=== PATIENT | female | born 1975 | race Caucasian/White ===

== ENCOUNTER → 2019-10-13 | Outpatient (CLI) | payer OTHER ==
--- NOTE | 2019-10-24 17:42 | RAD ---
DATE: 10/13/2019 11:35 AM EXAM: DIGITAL SCREEN BILAT W/CAD HISTORY: Screening COMPARISON: 09/25/2015 Bilateral full field craniocaudal and mediolateral oblique images were obtained using digital technique. This study was interpreted with the benefit of Computerized Aided Detection (CAD). FINDINGS: Breast Density: FATTY The Breast Parenchyma is primarily fatty replaced. Breast parenchyma level density A. Stable benign posttreatment change in the inferior right breast. No suspicious masses, microcalcifications or architectural distortion is present to suggest malignancy in either breast. The visualized axillae are unremarkable. IMPRESSION: No mammographic evidence of malignancy. BI-RADS CATEGORY: 2 BENIGN FINDING(S) RECOMMENDED FOLLOW-UP: 12M 12 MONTH FOLLOW-UP Annual screening mammography is recommended, unless clinically indicated sooner based on symptoms or change in physical exam. PQRS compliance statement: Patient information was entered into a reminder system with a target due date for the next mammogram. Mammography is a sensitive method for finding small breast cancers, but it does not detect them all and is not a substitute for careful clinical examination. A negative mammogram does not negate a clinically suspicious finding and should not result in delay in biopsying a clinically suspicious abnormality. "Our facility is accredited by the [employer] Mammography Program."
== END | disposition home or self-care (01) ==
LOC: MAMMO 11:18
PROVIDERS: ATTEND Nurse Practitioner Family
DX: Z12.31 Encounter for screening mammogram for malignant neoplasm of breast (principal)
CPT/HCPCS: 77067

== ENCOUNTER 2020-02-01 21:07 | Emergency (ER) | payer OTHER ==
[~2020-02-01] VITALS: Ht 167.6 cm; Wt 123.0 kg
[2020-02-01] MEDS ORDERED: IV NORMAL SALINE 1,000ML 1,000 ML IV ONE (21:45)
[2020-02-01] MEDS ORDERED: IOHEXOL 300 MG/ML 75 ML VIAL. IV ONE (21:45)
[2020-02-01 21:49] LABS: BASO # 0.1 x10^3/uL (0.0-0.2); BASO % 1 % (0-3); EOS # 0.2 x10^3/uL (0.0-0.7); EOS % 1 % (0-3); HEMATOCRIT 42.3 % (36.0-47.0); HEMOGLOBIN 13.3 g/dL (12.0-15.5); LYMPH # 3.4 x10^3/uL (1.0-4.8); LYMPH % 27 % (24-48); MEAN CORPUSCULAR HEMOGLOBIN 25 pg (25-35); MEAN CORPUSCULAR HGB CONC 32 g/dL (31-37); MEAN CORPUSCULAR VOLUME 79 fL (79-100); MONO # 0.7 x10^3/uL (0.0-1.1); MONO % 6 % (0-9); NEUT # 8.1 x10^3uL (1.8-7.7); NEUT % 65 % (31-73); PLATELET COUNT 283 x10^3/uL (140-400); RED BLOOD COUNT 5.34 x10^6/uL (3.50-5.40); RED CELL DISTRIBUTION WIDTH 16.9 % (11.5-14.5); WHITE BLOOD COUNT 12.5 x10^3/uL (4.0-11.0)
[2020-02-01 21:57] LABS: CALCIUM 9.5 mg/dL (8.5-10.1); CREATININE 0.9 mg/dL (0.6-1.0); GFR 67.7; POTASSIUM 4.2 mmol/L (3.5-5.1)
[2020-02-01 21:59] LABS: BACTERIA,URINE 0 /HPF (0-FEW); BILIRUBIN,URINE NEG (NEG); CLARITY,URINE CLEAR; COLOR,URINE YELLOW; GLUCOSE,URINE >=1000 mg/dL (NEG); NITRITE,URINE NEG (NEG); RBC,URINE RARE /HPF (0-2); SQUAMOUS EPITHELIAL CELL,UR FEW /LPF; UROBILINOGEN,URINE 0.2 mg/dL (0.2 mg/dL); WBC,URINE RARE /HPF (0-4)
[2020-02-01 22:03] LABS: ALBUMIN 3.6 g/dL (3.4-5.0); ALBUMIN/GLOBULIN RATIO 0.9 (1.0-1.7); TOTAL BILIRUBIN 0.2 mg/dL (0.2-1.0); TOTAL PROTEIN 7.4 g/dL (6.4-8.2)
--- NOTE | 2020-02-01 23:06 | RAD ---
Exam: CT of abdomen and pelvis with contrast INDICATION: Right lower quadrant pain, history of cholecystectomy and TECHNIQUE: Sequential axial images through the abdomen and pelvis obtained following the administration of 75 mL of Omni 300 IV contrast. Sagittal and coronal reformatted images were reconstructed from the axial data and reviewed. Comparisons: None FINDINGS: Heart size is normal. No pericardial effusion. Is lung bases are clear. No Liver, spleen, pancreas and adrenals are unremarkable. Gallbladder surgically absent. No perinephric inflammation or hydronephrosis. No renal or ureteral calculi are identified. Bladder is distended and appears thin-walled. Uterus is nonenlarged. No abnormal adnexal mass. Large and small bowel are unremarkable. Appendix is normal. No free intra-abdominal air or fluid. No obstruction. Abdominal aorta has a normal course and caliber. Abdominal vasculature is patent. No enlarged abdominal lymph nodes are identified. No suspicious osseous lesions or acute fractures. IMPRESSION: No acute process identified within the abdomen or pelvis. Exposure: One or more of the following in the visualized dose reduction techniques were utilized for this examination: 1. Automated exposure control 2. Adjustment of the MA and/or KV according to patient size 3. Use of iterative of reconstructive technique Electronically signed by: Alexa Amezcua MD (02/01/2020 11:03 PM) [facility]
--- NOTE | 2020-02-01 23:19 | PHYS DOC ---
Past History Past Medical History: Anemia, Diabetes, Other Additional Past Medical Histor: liver scaring Past Surgical History: Cholecystectomy, Additional Past Surgical Histo: Right partial masectomy Alcohol Use: None General Adult EDM: Chief Complaint: ABDOMINAL PAIN HPI: HPI: 44-year-old female presents with right lower quadrant abdominal pain. She has been having gastrointestinal issues for a few weeks and has an appointment with a GI specialist coming up. She presents today because he has had right lower quadrant pain that is new. This is gone on update today. She denies any falls or trauma. She wants to make sure there is nothing acute going on but cannot wait for her specialist appointment. She denies fever or chills. She has diarrhea at baseline. She has not had any vomiting. The pain is a mild to moderate cramping sensation. Review of Systems: Review of Systems: Constitutional: Denies fever or chills Eyes: Denies change in visual acuity HENT: Denies nasal congestion or sore throat Respiratory: Denies cough or shortness of breath Cardiovascular: Denies chest pain or edema GI: Right lower quadrant abdominal pain. Denies nausea, vomiting, bloody stools or diarrhea : Denies dysuria Musculoskeletal: Denies back pain or joint pain Integument: Denies rash Neurologic: Denies headache, focal weakness or sensory changes Endocrine: Denies polyuria or polydipsia Lymphatic: Denies swollen glands Psychiatric: Denies depression or anxiety Current Medications: Current Meds: Current Medications Medications (Trade) Dose Ordered Sig/Noemi Start Time Stop Time Status Last Admin Dose Admin Iohexol (Omnipaque 300 Mg/ml) 75 ml 1X ONCE 02/01/20 21:45 02/01/20 22:16 DC 02/01/20 22:39 75 ML Sodium Chloride 1,000 ml @ 1,000 mls/hr 1X ONCE 02/01/20 21:45 02/01/20 22:44 DC 02/01/20 22:26 1,000 MLS/HR Allergies: Allergies: Allergies Coded Allergies Type Severity Reaction Last Updated Verified dicloxacillin Allergy Unknown 02/01/20 Yes Physical Exam: PE: Constitutional: Well developed, well nourished, morbidly obese, no acute dist ress, non-toxic appearance. [] HENT: Normocephalic, atraumatic, bilateral external ears normal, oropharynx moist, no oral exudates, nose normal. [] Eyes: PERRLA, EOMI, conjunctiva normal, no discharge. [] Neck: Normal range of motion, no tenderness, supple, no stridor. [] Cardiovascular: Heart rate regular rhythm, no murmur [] Lungs & Thorax: Bilateral breath sounds clear to auscultation [] Abdomen: Bowel sounds normal, soft, mild right lower quadrant tenderness, no masses, no pulsatile masses. [] Skin: Warm, dry, no erythema, no rash. [] Back: No tenderness, no CVA tenderness. [] Extremities: No tenderness, no cyanosis, no clubbing, ROM intact, no edema. [] Neurologic: Alert and oriented X 3, normal motor function, normal sensory function, no focal deficits noted. [] Psychologic: Affect normal, judgement normal, mood normal. [] Current Patient Data: Labs: Laboratory Tests Test 02/01/20 21:25 02/01/20 21:30 02/01/20 21:38 Urine Collection Type Unknown Urine Color Yellow Urine Clarity Clear Urine pH 5.5 Urine Specific [place] 1.020 Urine Protein Neg (NEG-TRACE) Urine Glucose (UA) >=1000 mg/dL (NEG) Urine Ketones (Stick) Neg mg/dL (NEG) Urine Blood Neg (NEG) Urine Nitrite Neg (NEG) Urine Bilirubin Neg (NEG) Urine Urobilinogen Dipstick 0.2 mg/dL (0.2 mg/dL) Urine Leukocyte Esterase Neg (NEG) Urine RBC Rare /HPF (0-2) Urine WBC Rare /HPF (0-4) Urine Squamous Epithelial Cells Few /LPF Urine Bacteria 0 /HPF (0-FEW) Sodium Level 136 mmol/L (136-145) Potassium Level 4.2 mmol/L (3.5-5.1) Chloride Level 100 mmol/L (98-107) Carbon Dioxide Level 24 mmol/L (21-32) Anion Gap 12 (6-14) Blood Urea Nitrogen 8 mg/dL (7-20) Creatinine 0.9 mg/dL (0.6-1.0) Estimated GFR (Cockcroft-Gault) 67.7 BUN/Creatinine Ratio 9 (6-20) Glucose Level 241 mg/dL (70-99) H Calcium Level 9.5 mg/dL (8.5-10.1) Total Bilirubin 0.2 mg/dL (0.2-1.0) Aspartate Amino Transferase (AST) 14 U/L (15-37) L Alanine Aminotransferase (ALT) 22 U/L (14-59) Alkaline Phosphatase 98 U/L (46-116) Total Protein 7.4 g/dL (6.4-8.2) Albumin 3.6 g/dL (3.4-5.0) Albumin/Globulin Ratio 0.9 (1.0-1.7) L White Blood Count 12.5 x10^3/uL (4.0-11.0) H Red Blood Count 5.34 x10^6/uL (3.50-5.40) Hemoglobin 13.3 g/dL (12.0-15.5) Hematocrit 42.3 % (36.0-47.0) Mean Corpuscular Volume 79 fL (79-100) Mean Corpuscular Hemoglobin 25 pg (25-35) Mean Corpuscular Hemoglobin Concent 32 g/dL (31-37) Red Cell Distribution Width 16.9 % (11.5-14.5) H Platelet Count 283 x10^3/uL (140-400) Neutrophils (%) (Auto) 65 % (31-73) Lymphocytes (%) (Auto) 27 % (24-48) Monocytes (%) (Auto) 6 % (0-9) Eosinophils (%) (Auto) 1 % (0-3) Basophils (%) (Auto) 1 % (0-3) Neutrophils # (Auto) 8.1 x10^3uL (1.8-7.7) H Lymphocytes # (Auto) 3.4 x10^3/uL (1.0-4.8) Monocytes # (Auto) 0.7 x10^3/uL (0.0-1.1) Eosinophils # (Auto) 0.2 x10^3/uL (0.0-0.7) Basophils # (Auto) 0.1 x10^3/uL (0.0-0.2) POC Urine HCG, Qualitative hcg negative (Negative) Vital Signs: Vital Signs Date Time Temp Pulse Resp B/P (MAP) Pulse Ox O2 Delivery O2 Flow Rate FiO2 02/01/20 21:07 98.6 88 18 148/78 (101) 97 Room Air EKG: EKG: [] Radiology/Procedures: Radiology/Procedures: [] Impressions: Exam: CT of abdomen and pelvis with contrast INDICATION: Right lower quadrant pain, history of cholecystectomy and TECHNIQUE: Sequential axial images through the abdomen and pelvis obtained following the administration of 75 mL of Omni 300 IV contrast. Sagittal and coronal reformatted images were reconstructed from the axial data and reviewed. Comparisons: None FINDINGS: Heart size is normal. No pericardial effusion. Is lung bases are clear. No Liver, spleen, pancreas and adrenals are unremarkable. Gallbladder surgically absent. No perinephric inflammation or hydronephrosis. No renal or ureteral calculi are identified. Bladder is distended and appears thin-walled. Uterus is nonenlarged. No abnormal adnexal mass. Large and small bowel are unremarkable. Appendix is normal. No free intra-abdominal air or fluid. No obstruction. Abdominal aorta has a normal course and caliber. Abdominal vasculature is patent. No enlarged abdominal lymph nodes are identified. No suspicious osseous lesions or acute fractures. IMPRESSION: No acute process identified within the abdomen or pelvis. Exposure: One or more of the following in the visualized dose reduction techniques were utilized for this examination: 1. Automated exposure control 2. Adjustment of the MA and/or KV according to patient size 3. Use of iterative of reconstructive technique Electronically signed by: Alexa Burnham MD (02/01/2020 11:03 PM) [facility] DICTATED AND SIGNED BY: ALEXA BURNHAM MD DATE: 02/01/20 [id number] CC: CORY ONEILL; JIGNESH TOURE DO ~ Heart Score: Risk Factors: Risk Factors: DM, Current or recent (<one month) smoker, HTN, HLP, family history of CAD, obesity. Risk Scores: Score 0 - 3: 2.5% MACE over next 6 weeks - Discharge Home Score 4 - 6: 20.3% MACE over next 6 weeks - Admit for Clinical Observation Score 7 - 10: 72.7% MACE over next 6 weeks - Early Invasive Strategies Course & Med Decision Making: Course & Med Decision Making Pertinent Labs and Imaging studies reviewed. (See chart for details) The patient's labs are significant for an elevated glucose. Urinalysis is negative for infection. The CT scan is negative for acute findings. This could be menstrual cramps. It could be related to the sequela of her chronic diarrhea that she is already struggling with. I do not see any life-threatening complications at this time. She is stable for discharge. [] Mark Disclaimer: Mark Disclaimer: This electronic medical record was generated, in whole or in part, using a voice recognition dictation system. Departure Departure: Impression: Primary Impression: Right lower quadrant abdominal pain Disposition: 01 DC HOME SELF CARE/HOMELESS Condition: STABLE Referrals: CORY ONEILL (PCP) Patient Instructions: Abdominal Pain, Women JIGNESH TOURE DO Feb 01, 2020 23:19
[2020-02-01 23:45] VITALS: BP 135/64
== END 2020-02-01 23:45 | disposition home or self-care (01) ==
LOC: ER 21:07
DX: R10.31 Right lower quadrant pain (principal); E11.9 Type 2 diabetes mellitus without complications; Z86.2 Personal history of diseases of the blood and blood-forming organs and certain disorders involving the immune mechanism; Z90.49 Acquired absence of other specified parts of digestive tract; Z98.890 Other specified postprocedural states; Z88.1 Allergy status to other antibiotic agents
CPT/HCPCS: 36415; 74177; 80053; 81001; 81025; 85025; 96360; 99285; J7030; Q9967

== ENCOUNTER → 2020-02-20 | Outpatient (CLI) | payer OTHER ==
[2020-02-01 23:45] VITALS: BP 135/64
--- NOTE | 2020-02-20 09:04 | RAD ---
STUDY: US Abdomen Complete INDICATION: Diarrhea. Diabetes mellitus. Generalized abdominal pain. COMPARISON: 02/01/2020 CT abdomen/pelvis. TECHNIQUE: Real-time grayscale and color Doppler sonographic evaluation of the abdomen. Findings: Pancreas: What is visualized of the pancreas is within normal limits. Liver: Normal size and echogenicity. Aorta/IVC/Main Portal Vein: Patent main portal vein with hepatopedal flow. Nonaneurysmal aorta. Unremarkable IVC at the liver. Gall Bladder: Surgically absent. Common Bile Duct: Normal transverse dimension at 0.4 cm. Right Kidney: Within normal limits for size at 12.2 cm in length. Cortical thickness and echogenicity is unremarkable. No hydronephrosis. No complex cyst or mass. Left Kidney: Within normal limits for size at 12.8 cm in length. Cortical thickness and echogenicity is unremarkable. No hydronephrosis. No complex cyst or mass. Spleen: Within normal limits for size at 11 cm in length. Miscellaneous: None. Impression: 1. Unremarkable ultrasound examination of the abdomen. 2. Surgically absent gallbladder. Electronically signed by: LUNA BORGES MD (02/20/2020 9:01 AM) [id number]
== END ==
LOC: US 07:51
PROVIDERS: ATTEND Nurse Practitioner Family
DX: E11.9 Type 2 diabetes mellitus without complications (principal); Z90.49 Acquired absence of other specified parts of digestive tract
CPT/HCPCS: 76700

== ENCOUNTER 2020-07-22 15:11 | Emergency (ER) | payer OTHER ==
[~2020-07-22] VITALS: Ht 167.6 cm; Wt 125.7 kg
[2020-07-22 15:55] LABS: BILIRUBIN,URINE NEG (NEG); CLARITY,URINE CLEAR; COLOR,URINE YELLOW; GLUCOSE,URINE >=1000 mg/dL (NEG); NITRITE,URINE NEG (NEG); UROBILINOGEN,URINE 0.2 mg/dL (0.2 mg/dL)
[2020-07-22 15:58] LABS: BACTERIA,URINE 0 /HPF (0-FEW); SQUAMOUS EPITHELIAL CELL,UR FEW /LPF; WBC,URINE 0 /HPF (0-4)
--- NOTE | 2020-07-22 16:03 | PHYS DOC ---
Past History Past Medical History: Anemia, Diabetes, Other Additional Past Medical Histor: liver scaring (JEFFREY GIBSON APRN) Past Surgical History: Cholecystectomy, Additional Past Surgical Histo: Right partial masectomy (JEFFREY GIBSON APRN) Alcohol Use: None (JEFFREY GIBSON APRN) Adult General Chief Complaint Chief Complaint: FLANK PAIN HPI HPI Patient is a 45-year-old transgender female, states I have changed from female to male, I take testosterone now, my name is Rangel. Complains of a sudden onset of right sided back pain has started last , stating Thursday and Thursday has been a constant ache. Has been treating the pain with a heating pad without a successful reduction in pain. Patient states he noticed blood in the urine today, called nurse advice line who told him to come to the emergency department and be checked out for a kidney stone. Patient denies any other physical complaints or physical concerns. (JEFFREY GIBSON APRN) Review of Systems Review of Systems 14 body systems of review of systems have been reviewed. See HPI for pertinent positives and negative responses, otherwise all other systems are negative, nonpertinent or noncontributory. (JEFFREY GIBSON APRN) Allergies Allergies Allergies Coded Allergies Type Severity Reaction Last Updated Verified dicloxacillin Allergy Unknown 02/01/20 Yes (JEFFREY GIBSON APRN) Physical Exam Physical Exam Constitutional: Well developed, well nourished, no acute distress, non-toxic appearance. HENT: Normocephalic, atraumatic, bilateral external ears normal, oropharynx moist, no oral exudates, nose normal. Eyes: PERRLA, EOMI, conjunctiva normal, no discharge. Neck: Normal range of motion, no tenderness, supple, no stridor. Cardiovascular:Heart rate regular rhythm, no murmur Lungs & Thorax: Bilateral breath sounds clear to auscultation Abdomen: Bowel sounds normal, soft, no tenderness, no masses, no pulsatile masses. No rebound tenderness, no Cooper sign, no McBurney's point tenderness, well-healed surgical scars, patient has history of gallbladder in 1996. Skin: Warm, dry, no erythema, no rash. Back: No midline vertebral spinal pain, no left-sided CVA tenderness, positive right-sided CVA tenderness. No bruising or areas of ecchymosis to the back. Extremities: No tenderness, no cyanosis, no clubbing, ROM intact, no edema. Neurologic: Alert and oriented X 3, normal motor function, normal sensory function, no focal deficits noted. Psychologic: Affect normal, judgement normal, mood normal. (JEFFREY GIBSON APRN) Current Patient Data Lab Results Laboratory Tests Test 07/22/20 15:27 07/22/20 16:35 Urine Collection Type Unknown Urine Color Yellow Urine Clarity Clear Urine pH 5.5 Urine Specific Spencer 1.010 Urine Protein Neg Urine Glucose (UA) >=1000 mg/dL Urine Ketones (Stick) Neg mg/dL Urine Blood Trace Urine Nitrite Neg Urine Bilirubin Neg Urine Urobilinogen Dipstick 0.2 mg/dL Urine Leukocyte Esterase Neg Urine RBC 6-10 /HPF Urine WBC 0 /HPF Urine Squamous Epithelial Cells Few /LPF Urine Bacteria 0 /HPF White Blood Count 10.8 x10^3/uL Red Blood Count 6.45 x10^6/uL Hemoglobin 17.6 g/dL Hematocrit 53.6 % Mean Corpuscular Volume 83 fL Mean Corpuscular Hemoglobin 27 pg Mean Corpuscular Hemoglobin Concent 33 g/dL Red Cell Distribution Width 19.0 % Platelet Count 187 x10^3/uL Neutrophils (%) (Auto) 68 % Lymphocytes (%) (Auto) 24 % Monocytes (%) (Auto) 6 % Eosinophils (%) (Auto) 1 % Basophils (%) (Auto) 1 % Neutrophils # (Auto) 7.3 x10^3uL Lymphocytes # (Auto) 2.5 x10^3/uL Monocytes # (Auto) 0.7 x10^3/uL Eosinophils # (Auto) 0.1 x10^3/uL Basophils # (Auto) 0.1 x10^3/uL Sodium Level 137 mmol/L Potassium Level 4.4 mmol/L Chloride Level 101 mmol/L Carbon Dioxide Level 25 mmol/L Anion Gap 11 Blood Urea Nitrogen 13 mg/dL Creatinine 0.9 mg/dL Estimated GFR (Cockcroft-Gault) 67.4 BUN/Creatinine Ratio 14 Glucose Level 292 mg/dL Calcium Level 9.1 mg/dL Total Bilirubin 0.4 mg/dL Aspartate Amino Transf (AST/SGOT) 25 U/L Alanine Aminotransferase (ALT/SGPT) 26 U/L Alkaline Phosphatase 114 U/L Total Protein 7.6 g/dL Albumin 3.5 g/dL Albumin/Globulin Ratio 0.9 Lipase 87 U/L Current Medications Medications (Trade) Dose Ordered Sig/Noemi Route PRN Reason Start Time Stop Time Status Last Admin Dose Admin Ketorolac Tromethamine (Toradol 30mg Vial) 30 mg 1X ONCE IVP 07/22/20 16:15 07/22/20 16:18 DC 07/22/20 17:50 Sodium Chloride 1,000 ml @ 1,000 mls/hr 1X ONCE IV 07/22/20 16:15 07/22/20 17:14 DC 07/22/20 17:50 Laboratory Tests Test 07/22/20 15:27 Urine Collection Type Unknown Urine Color Yellow Urine Clarity Clear Urine pH 5.5 Urine Specific Spencer 1.010 Urine Protein Neg (NEG-TRACE) Urine Glucose (UA) >=1000 mg/dL (NEG) Urine Ketones (Stick) Neg mg/dL (NEG) Urine Blood Trace (NEG) Urine Nitrite Neg (NEG) Urine Bilirubin Neg (NEG) Urine Urobilinogen Dipstick 0.2 mg/dL (0.2 mg/dL) Urine Leukocyte Esterase Neg (NEG) Urine RBC 6-10 /HPF (0-2) Urine WBC 0 /HPF (0-4) Urine Squamous Epithelial Cells Few /LPF Urine Bacteria 0 /HPF (0-FEW) (JEFFREY GIBSON APRN) EKG EKG [] (JEFFREY GIBSON APRN) Radiology/Procedures Radiology/Procedures []PATIENT: EMILE RUFFIN LACCOUNT: [id number]#: [id number] : 1975 LOCATION: ER AGE: 45 SEX: F EXAM STATUS: REG ER ORD. PHYSICIAN: JEFFREY GIBSON APRN REASON: rt flank pain with hematuria PROCEDURE: CT ABDOMEN PELVIS WO CONTRAST EXAM: Abdomen and pelvis CT without intravenous contrast. HISTORY: Right flank pain and hematuria. TECHNIQUE: Computed tomographic images of the abdomen and pelvis were obtained without contrast. Multiplanar reformatting was performed. *One or more of the following individualized dose reduction techniques were utilized for this examination: 1. Automated exposure control. 2. Adjustment of the mA and/or kV according to patient size. 3. Use of iterative reconstruction technique. COMPARISON: None. FINDINGS: Evaluation of the lower thorax is unremarkable. No hepatic lesion is seen. The gallbladder is absent. The pancreas, spleen and adrenal glands are unremarkable. There is no evidence of nephroureterolithiasis or hydronephrosis. The bladder is unremarkable. The cecum is positioned within the mid abdomen. There is no appendicitis. There is no bowel obstruction. There is no abnormal bowel wall thickening. The uterus and ovaries are unremarkable. The aorta is normal in caliber. There is no lymphadenopathy. There is no acute or suspicious osseous finding. IMPRESSION: No acute abdominal or pelvic finding. Electronically signed by: Bhumika Garza MD (07/22/2020 5:26 PM) [facility] DICTATED AND SIGNED BY: BHUMIKA GARZA MD DATE: 07/22/201723 CC: JEFFREY GIBSON APRN; MANOHAR LEE MD ~MTH0 0 (JEFFREY GIBSON APRN) Heart Score C/O Chest Pain: No Risk Factors: Risk Factors: DM, Current or recent (<one month) smoker, HTN, HLP, family h istory of CAD, obesity. Risk Scores: Risk Factors: DM, Current or recent (<one month) smoker, HTN, HLP, family history of CAD, obesity. (JEFFREY GIBSON APRN) Course & Med Decision Making Course & Med Decision Making Pertinent Labs and Imaging studies reviewed. (See chart for details) 45-year-old female transgender to male, vital signs reviewed, reports sudden onset right-sided mid back pain that started last , noticed blood in urine, was told to come to ER to rule out kidney stone. Physical examination concerning for kidney stone to include right-sided CVA tenderness with hematuria. Will order IV saline lock, normal saline, 30 mg Toradol for pain, CT abdomen pelvis to rule out nephrolithiasis or other acute abdominal process. Upon reevaluation of the patient, patient denies any change of pain, will order 1 tablet of 5/325 hydrocodone/acetaminophen for left leg back pain. Patient's labs showed mild hemoconcentration, this is most likely related to sex change testosterone hormone injections. Discussed CT findings with patient, discussed pain most likely musculoskeletal back pain versus back strain. Will treat with 10 mg Flexeril and 600 mg ibuprofen prescriptions for home. Discussed with patient ice packs to sore areas for the next 48 hours 30 minutes on and 30 minutes off. Patient gave verbal understanding of discharge home instructions, follow-up with primary care on Thursday, prescription medication use for pain control, return to ER precautions or concerns, patient was thankful stating he is ready to go home and was discharged home without incident. (JEFFREY GIBSON APRN) Dragon Disclaimer Dragon Disclaimer This electronic medical record was generated, in whole or in part, using a voice recognition dictation system. (JEFFREY GIBSON APRN) Attending Co-Sign The patient was seen and interviewed as well as examined at the bedside. The chart was reviewed. The case was discussed. Agree with the plan of care. (JIGNESH TOURE DO) Departure Departure: Impression: Primary Impression: Strain of mid-back Disposition: 01 HOME / SELF CARE / HOMELESS Condition: GOOD Referrals: MANOHAR LEE MD (PCP) Additional Instructions: You have been seen today in the emergency department for back pain, a CT was performed to rule out a kidney stone or any other anterior abdominal or back/spine abnormalities, there were no concerning findings of the CT scan. As we discussed your pain is most likely related to a strain of your mid back. I am prescribing you 10 mg Flexeril to take up to 3 times a day as needed for back pain along with 600 mg ibuprofen to take up to 3 times a day for back pain as well. As we discussed I encourage you to follow-up with your primary care provider at on Thursday for ongoing evaluation of your back pain along with pain management. Please return to the emergency department for worsening sympt oms or other concerns. EMERGENCY DEPARTMENT GENERAL DISCHARGE INSTRUCTIONS Thank you for coming to [facility] (ED) today and trusting us with you care. We trust that you had a positivie experience in our Emergency Department. If you wish to speak to the department management, you may call the director at [phone]. YOUR FOLLOW UP INSTRUCTIONS ARE FOLLOWS: 1. Do you have a private Doctor? If you do not have a private doctor, please ask for a resource list of physicians or clinics that may be able to assist you with follow up care. 2. The Emergency Physician has interpreted your x-rays. The X-Ray specialist will also review them. If there is a change in the findings, you will be notified in 48 hours when at all possible. 3. A lab test or culture has been done, your results will be reviewed and you will be notified if you need a change in treatment. ADDITIONAL INSTRUCTIONS AND INFORMATION: 1. Your care today has been supervised by a physician who is specially trained in emergency care. Many problems require more than one evaluation for a complete diagnosis and treatment. We recommend that you schedule your follow up appointment as recommended to ensure complete treatment of you illness or injury. If you are unable to obtain follow up care and continue to have a problem, or if your condition worsens, we recommend that you return to the ED. 2. We are not able to safely determine your condition over the phone nor are we able to give sound medical advice over the phone. For these safety reasons, if you call for medical advice we will ask you to come to the ED for further evaluation. 3. If you have any questions regarding these discharge instructions please call the ED at [phone]. SAFETY INFORMATION: In the interest of safety, wellness, and injury prevention; we encourage you to wear your sealbelt, if you smoke; quite smoking, and we encourage family to use a protective helmet for bicycling and other sporting events that present an increased risk for head injury. IF YOUR SYMPTOMS WORSEN OR NEW SYMPTOMS DEVELOP, OR YOU HAVE CONCERNS ABOUT YOUR CONDITION; OR IF YOUR CONDITION WORSENS WHILE YOU ARE WAITING FOR YOUR FOLLOW UP APPOINTMENT; EITHER CONTACT YOUR PRIMARY CARE DOCTOR, THE PHYSICIAN WHOSE NAME AND NUMBER YOU WERE GIVEN, OR RETURN TO THE ED IMMEDIATELY. Scripts Ibuprofen (IBUPROFEN) 600 Mg Tablet 600 MG PO TID PRN PRN for PAIN, #20 TAB 0 Refills Prov: JEFFREY GIBSON APRN 07/22/20 Cyclobenzaprine Hcl (CYCLOBENZAPRINE HCL) 10 Mg Tablet 1 TAB PO TID PRN PRN for PAIN, #12 TAB 0 Refills Prov: JEFFREY GIBSON APRN 07/22/20 Problem Qualifiers Primary Impression: Strain of mid-back Encounter type: initial encounter Qualified Codes: S29.012A - Strain of muscle and tendon of back wall of thorax, initial encounter JEFFREY GIBSON APRN July 22, 2020 16:02 JIGNESH TOURE DO July 23, 2020 03:38
[2020-07-22] MEDS ORDERED: IV NORMAL SALINE 1,000ML 1,000 ML IV ONE (16:15)
[2020-07-22] MEDS ORDERED: KETOROLAC 30 MG/ML VIAL. IVP ONE (16:15)
[2020-07-22 17:08] LABS: BASO # 0.1 x10^3/uL (0.0-0.2); BASO % 1 % (0-3); EOS # 0.1 x10^3/uL (0.0-0.7); EOS % 1 % (0-3); HEMATOCRIT 53.6 % (36.0-47.0); HEMOGLOBIN 17.6 g/dL (12.0-15.5); LYMPH # 2.5 x10^3/uL (1.0-4.8); LYMPH % 24 % (24-48); MEAN CORPUSCULAR HEMOGLOBIN 27 pg (25-35); MEAN CORPUSCULAR HGB CONC 33 g/dL (31-37); MEAN CORPUSCULAR VOLUME 83 fL (79-100); MONO # 0.7 x10^3/uL (0.0-1.1); MONO % 6 % (0-9); NEUT # 7.3 x10^3uL (1.8-7.7); NEUT % 68 % (31-73); PLATELET COUNT 187 x10^3/uL (140-400); RED BLOOD COUNT 6.45 x10^6/uL (3.50-5.40); WHITE BLOOD COUNT 10.8 x10^3/uL (4.0-11.0)
[2020-07-22 17:17] LABS: CALCIUM 9.1 mg/dL (8.5-10.1); CREATININE 0.9 mg/dL (0.6-1.0); GFR 67.4; POTASSIUM 4.4 mmol/L (3.5-5.1)
[2020-07-22 17:23] LABS: ALBUMIN 3.5 g/dL (3.4-5.0); ALBUMIN/GLOBULIN RATIO 0.9 (1.0-1.7); TOTAL BILIRUBIN 0.4 mg/dL (0.2-1.0); TOTAL PROTEIN 7.6 g/dL (6.4-8.2)
--- NOTE | 2020-07-22 17:28 | RAD ---
EXAM: Abdomen and pelvis CT without intravenous contrast. HISTORY: Right flank pain and hematuria. TECHNIQUE: Computed tomographic images of the abdomen and pelvis were obtained without contrast. Mult iplanar reformatting was performed. *One or more of the following individualized dose reduction techniques were utilized for this examina tion: 1. Automated exposure control. 2. Adjustment of the mA and/or kV according to patient size. 3. Use of iterative reconstruction technique. COMPARISON: None. FINDINGS: Evaluation of the lower thorax is unremarkable. No hepatic lesion is seen. The gallbladder is absent. The pancreas, spleen and adrenal glands are unremarkable. There is no evidence of nephrour eterolithiasis or hydronephrosis. The bladder is unremarkable. The cecum is positioned within the mid abdomen. There is no appendicitis. There is no bowel obstructi on. There is no abnormal bowel wall thickening. The uterus and ovaries are unremarkable. The aorta is normal in caliber. There is no lymphadenopathy. There is no acute or suspicious osseous finding. IMPRESSION: No acute abdominal or pelvic finding. Electronically signed by: Bhumika Forrest MD (07/22/2020 5:26 PM) [facility]
[2020-07-22] MEDS ORDERED: CYCLOBENZAPRINE 10MG 4TABLET STARTPACK PO ONE (18:45)
[2020-07-22] MEDS ORDERED: HYDROcodone/APAP 5/325MG 1 TAB TABLET PO ONE (18:45)
[2020-07-22] MEDS ORDERED: CYCL-331 PO (18:57)
[2020-07-22] MEDS ORDERED: IBUP600T16 PO (18:57)
[2020-07-22 19:08] VITALS: BP 148/98
== END 2020-07-22 19:08 | disposition home or self-care (01) ==
LOC: ER 15:11
DX: S29.012A Strain of muscle and tendon of back wall of thorax, initial encounter (principal); E11.9 Type 2 diabetes mellitus without complications; Z86.2 Personal history of diseases of the blood and blood-forming organs and certain disorders involving the immune mechanism; Z90.49 Acquired absence of other specified parts of digestive tract; Z98.890 Other specified postprocedural states; Z88.1 Allergy status to other antibiotic agents; X58.XXXA Exposure to other specified factors, initial encounter; Y93.89 Activity, other specified; Y92.89 Other specified places as the place of occurrence of the external cause; Y99.8 Other external cause status
CPT/HCPCS: 36415; 74176; 80053; 81001; 83690; 85025; 96361; 96374; 99284; J1885; J7030

== ENCOUNTER 2021-05-28 01:38 | Emergency (ER) | payer OTHER ==
[~2021-05-28] VITALS: Ht 167.6 cm; Wt 114.9 kg
[~2021-05-28 01:38] MED LIST: CYCL10TA19 PO; IBUP600T16 PO
--- NOTE | 2021-05-28 01:45 | PHYS DOC ---
Past History Past Medical History: Anemia, Diabetes, Other Additional Past Medical Histor: liver scaring Past Surgical History: Cholecystectomy, Additional Past Surgical Histo: Right partial masectomy Alcohol Use: None Adult General HPI HPI Patient is a 45-year-old female who is transitioning to male, who goes by Rangel who presents with hyperglycemia. States that he has some slipped disks in his neck and early yesterday morning had a steroid injection. States he was told that this could raise his blood sugar. States that the day before he ate normally, drink normally, made urine and stool normally for him and had normal blood sugars. States his blood sugar did go up until after the injection. States he has been eating and drinking normally for him today. States he has been taking his insulin normally and eating. Has a recent travels, traumas, illnesses, fevers, neck pain, pain or trouble swallowing, chest pain, shortness of breath, abdominal pain, nausea, vomiting, diarrhea. States he otherwise feels well but came in because his blood sugar was high at home when checking. Review of Systems Review of Systems Review of systems otherwise unremarkable except noted in HPI Allergies Allergies Allergies Coded Allergies Type Severity Reaction Last Updated Verified dicloxacillin Allergy Unknown 02/01/20 Yes Physical Exam Physical Exam Constitutional: Well developed, well nourished, no acute distress, non-toxic appearance. [] HENT: Normocephalic, atraumatic, bilateral external ears normal, oropharynx moist, no oral exudates, nose normal. [] Eyes: conjunctiva normal, no discharge. [] Neck: Normal range of motion, no tenderness, supple, no stridor. [] Cardiovascular:Heart rate regular rhythm, no murmur [] Lungs & Thorax: Bilateral breath sounds clear to auscultation [] Abdomen: Bowel sounds normal, soft, no tenderness, no masses, no pulsatile masses. [] Skin: Warm, dry, no erythema, no rash. [] Back: No tenderness, no CVA tenderness. [] Extremities: No tenderness, no cyanosis, no clubbing, ROM intact, no edema. [] Neurologic: Alert and oriented X 3, normal motor function, normal sensory function, no focal deficits noted. [] Psychologic: Affect normal, judgement normal, mood normal. [] EKG EKG [] Radiology/Procedures Radiology/Procedures [] Heart Score C/O Chest Pain: No Risk Factors: Risk Factors: DM, Current or recent (<one month) smoker, HTN, HLP, family history of CAD, obesity. Risk Scores: Risk Factors: DM, Current or recent (<one month) smoker, HTN, HLP, family history of CAD, obesity. Course & Med Decision Making Course & Med Decision Making Patient 45-year-old female presents with hyperglycemia Initially notable for tachycardia and hypertension which tachycardia improved in the ED and blood pressure came down. Physical exam noted above. Placed on the monitor with IV access established and IV fluid begun. Given small dose of insulin. On reassessment patient still asymptomatic, doing well, vital signs improved. Blood sugar dropping to the 300s. No signs or symptoms of DKA. Able to take p.o. Discussed all findings with patient. Discussed steroid use and elevations in blood sugar Advised to continue eating normally, take insulin normally, drink plenty of fluids and follow-up in the morning with primary care physician to discuss ED visit. Gave return precautions to the ED. Patient grateful, verbalized understanding and agreed with plan of discharge. Dragon Disclaimer Dragon Disclaimer This electronic medical record was generated, in whole or in part, using a voice recognition dictation system. Departure Departure: Impression: Primary Impression: Hyperglycemia Additional Impression: Pseudohyponatremia Disposition: 01 HOME / SELF CARE / HOMELESS Condition: STABLE Referrals: MANOHAR LEE MD (PCP) Patient Instructions: Hyperglycemia Additional Instructions: Thank you for coming into the emergency department tonight and allowing us to take care of you. Please read the attached information carefully to go over things we discussed. Please be sure to maintain your normal diet and fluid intake. Please take your insulin and check your blood sugar normally. As we discussed, the steroids can increase your blood sugar, and it would be a good idea to follow-up first thing in the morning with your primary care physician to update on this and see if they would like to adjust your insulin in the short- term for this or just let it ride as the steroids will eventually wear off in this side effect should resolve. Please come back to the ED with new or concerning symptoms as discussed. Problem Qualifiers CIARA BYRNES MD May 28, 2021 01:45
[2021-05-28] MEDS: IV RINGERS SOLUTION,LACTATED 1,000 ML IV ONE (02:25)
[2021-05-28] MEDS: INSULIN REGULAR 100 UNIT/ML 3ML VIAL. IV ONE (02:26)
[2021-05-28 02:51] LABS: CALCIUM 8.9 mg/dL (8.5-10.1); CREATININE 1.1 mg/dL (0.6-1.0); GFR 53.5; POTASSIUM 4.3 mmol/L (3.5-5.1)
[2021-05-28 03:19] LABS: BACTERIA,URINE FEW /HPF (0-FEW); CLARITY,URINE CLEAR; COLOR,URINE YELLOW; GLUCOSE,URINE 500 mg/dL (NEG); NITRITE,URINE NEG (NEG); SQUAMOUS EPITHELIAL CELL,UR OCC /LPF; UROBILINOGEN,URINE 0.2 mg/dL (0.2 mg/dL)
[2021-05-28 03:43] VITALS: BP 111/66
== END 2021-05-28 03:47 | disposition home or self-care (01) ==
LOC: ER 01:38
DX: E11.65 Type 2 diabetes mellitus with hyperglycemia (principal); Z86.2 Personal history of diseases of the blood and blood-forming organs and certain disorders involving the immune mechanism; Z88.1 Allergy status to other antibiotic agents
CPT/HCPCS: 36415; 80048; 81001; 82947; 87086; 96361; 96374; 99283; J1815; J7120